=== PATIENT | female | born 1965 | race Caucasian/White ===

== ENCOUNTER 2019-07-03 06:00 | Day surgery (SDC) | payer OTHER ==
[~2019-07-03] VITALS: Ht 162.6 cm; Wt 68.0 kg
[2019-07-04] MEDS ORDERED: ULTRACET PO (07:45)
== END 2019-07-04 08:00 | disposition home or self-care (01) ==
LOC: CIR.AMB 06:00 → SURG 06:00 → O/R 06:00 → EDSTATUS 08:15 → SURG 08:15 → O/R 13:29 → SURG 13:29 → CIR.AMB 07-04 08:00 → O/R 07-04 09:57 → SURG 07-04 09:57
DX: D12.8 Benign neoplasm of rectum (principal)

== ENCOUNTER 2020-01-02 16:23 | Emergency (ER) | payer OTHER ==
[~2020-01-02] VITALS: Ht 162.6 cm; Wt 65.8 kg
[~2020-01-02 16:23] MED LIST: ULTRACET PO
== END 2020-01-03 00:15 | disposition home or self-care (01) ==
LOC: ER 16:23
DX: N83.291 Other ovarian cyst, right side (principal); D25.9 Leiomyoma of uterus, unspecified

== ENCOUNTER 2025-02-05 09:59 | Outpatient (CLI) | payer OTHER | END 2025-02-05 10:07 | disposition home or self-care (01) | LOC: SONOGRAMA 09:59 | PROVIDERS: ATTEND Pathology Anatomic Pathology & Clinical Pathology | DX: D34 Benign neoplasm of thyroid gland (principal); E04.1 Nontoxic single thyroid nodule ==